=== PATIENT | female | born 1995 | race Caucasian/White ===

== ENCOUNTER 2019-11-16 14:20 | Emergency (ER) | payer SELFPAY ==
--- NOTE | 2019-11-16 14:59 | RAD ---
XR Chest Pa Lat STANDARD HISTORY: Cough COMPARISON: 09/23/2014 FINDINGS: The heart size is normal. The lungs are well expanded without focal areas of consolidation, pneumothorax or pleural effusions. IMPRESSION: No radiographic evidence of acute cardiopulmonary process.
== END 2019-11-16 15:53 | disposition home or self-care (01) ==
LOC: ERS 14:20
DX: J06.9 Acute upper respiratory infection, unspecified (principal); F17.210 Nicotine dependence, cigarettes, uncomplicated
CPT/HCPCS: 71046